=== PATIENT | male | born 1965 | race Caucasian/White ===

== ENCOUNTER → 2016-11-13 | Outpatient (CLI) | payer OTHER ==
[~2016-11-13] MED LIST: AZIT250T PO; BUME2TAB18 PO; BUPR300T59 PO; CALC-5 PO; CHOL200014 PO; DAPA1TAB5 PO; DILT240C50 PO; ENAL20TA PO; ESCI20TA30 PO; FLUT12AE7 ORAL INH; GABA-336 PO; INSU100V20 SQ; INSU300I SQ; LORA-315 PO; METF-206 PO; MONT10TA15 PO; NITR0.4T39 PO; PANT40TA32 PO; PIOG30TA27 PO; POTA10TA16 PO; PRED20TA PO; RIVA20TA PO; SIMV20TA6 PO; SOTA80TA PO
--- NOTE | 2016-11-13 14:05 | DI ---
Indication: ITS.REASON: CHF, AFIB, RT SHOULDER, DM, DIABETIC NEUROPATHY, COPD, DEPRESSION PROCEDURE: SHOULDER RIGHT 2-3 VIEWS: Encounter: Initial Comparison: None Findings: There is no acute fracture, dislocation or malalignment identified. Suture anchor in the glenoid. Glenohumeral joint space is normal. Mild acromioclavicular joint space narrowing with small osteophytes. Impression: No acute osseous abnormality. .
== END ==
LOC: IMA 13:32
PROVIDERS: ATTEND Surgery
DX: M25.511 Pain in right shoulder (principal); E11.40 Type 2 diabetes mellitus with diabetic neuropathy, unspecified; H91.91 Unspecified hearing loss, right ear; I48.91 Unspecified atrial fibrillation; I50.9 Heart failure, unspecified; J44.9 Chronic obstructive pulmonary disease, unspecified

== ENCOUNTER 2017-01-22 01:31 | Observation (INO) ==
--- NOTE | 2017-01-22 02:04 | Emergency Department Report ---
Chest Pain HPI - General Stated Complaint: Chest pain/dizzie Time Seen by Provider: 01/22/17 02:00 - History of Present Illness HPI narrative: 51 yo gentleman with chest pain onset at 1am. He felt sick last night and had diarrhea x 4. He went to bed, but awoke with rapid hr and "an elephant" on his chest. He feels soa and exhausted. Ex smoker. Hx of afib and ablation. Fever on arrival at ED, but did not realize he had one until he got here. Decreased appetite x 2 days. He is diabetic , controlled with Insulin. BG usually runs 140-170. - Related Data Home Medications Medication Instructions Recorded Confirmed Cholecalciferol (Vitamin D3) 2,000 unit PO DAILY #0 12/28/12 01/22/17 (Vitamin D3) Insulin Aspart (Novolog) 10 u SQ WB #0 12/28/12 01/22/17 LORazepam [Lorazepam] 0.5 mg PO PRN #0 12/28/12 01/22/17 Metformin Hcl 1,000 mg PO HS #0 12/28/12 01/22/17 Montelukast Sodium [Singulair] 10 mg PO HS #0 12/28/12 01/22/17 Pantoprazole Sodium 40 mg PO DAILY #0 12/28/12 01/22/17 Calcium Carbonate 1 tab PO DAILY #0 11/23/13 01/22/17 Insulin Aspart (Novolog) 10 u SQ WL #0 11/23/13 01/22/17 Insulin Aspart (Novolog) 15 u SQ WS #0 11/23/13 01/22/17 Rivaroxaban [Xarelto] 20 mg PO HS #0 11/23/13 01/22/17 Sotalol HCl [Sotalol] 80 mg PO ACBID #0 05/08/14 01/22/17 Bumetanide 2 mg PO BID #0 08/18/16 01/22/17 Enalapril Maleate 10 mg PO BID #0 08/18/16 01/22/17 Escitalopram Oxalate 20 mg PO DAILY #0 08/18/16 01/22/17 Insulin Glargine,Hum.rec.anlog 60 unit SQ DAILY #0 08/18/16 01/22/17 [Norma Grimaldo] Nitroglycerin 0.4 mg PO Q5MIN #0 08/18/16 01/22/17 Pioglitazone HCl 30 mg PO DAILY #0 08/18/16 01/22/17 Potassium Chloride ER Tab [K-Dur] 20 meq PO DAILY #0 08/18/16 01/22/17 Simvastatin 20 mg PO QOD #0 08/18/16 01/22/17 buPROPion HCl [Bupropion Xl] 300 mg PO DAILY #0 08/18/16 01/22/17 dilTIAZem HCl [Cartia Xt] 240 mg PO DAILY #0 08/18/16 01/22/17 Gabapentin [Neurontin] 200 mg PO TID 01/22/17 01/22/17 Insulin Glargine,Hum.rec.anlog 60 unit SQ HS 01/22/17 01/22/17 [Toryan Solostar] Allergies Allergy/AdvReac Type Severity Reaction Status Date / Time rosuvastatin [From Crestor] Allergy Severe Shortness Verified 01/22/17 06:46 of Breath (Air) Fihswhb-Boz-Czp Reductase Allergy Severe DYSPNEA Verified 01/22/17 06:46 Inhibitor tetracycline Allergy Intermediate Rash Verified 01/22/17 06:46 zolpidem tartrate Allergy Intermediate HALLUCINATI Uncoded 01/22/17 06:46 ONS Review of Systems All systems: reviewed and negative except as stated PFSH Patient Stated Medical History Angina Yes Cardiac Arrhythmia Yes Congestive Heart Failure Yes Hypertension Yes Other Cardiology Yes: AFIB Asthma Yes Bronchitis Yes Chronic Obstructive Pulmonary Yes Disease (COPD) Diabetes Mellitus Type 1 Yes Gastroesophageal Reflux Yes Disease Other Hematologic Yes: ON XARELTO Other Musculoskeletal Yes: ARTHRITIS AND NEUROPATHY Depression Yes Clinic Medical History (Last Updated 01/23/17 @ 10:12 by Willie Lux MD) Diabetes mellitus type 2, uncontrolled, without complications (Chronic Medical) Hyperlipidemia LDL goal <100 (Chronic Medical) Hypertension (Chronic Medical) intermediate current use of insulin (Chronic Medical) Morbid obesity with BMI of 45.0-49.9, adult (Chronic Medical) Surgical History: ablation Family History: htn - Social History Smoking status: Former smoker Substance use type: does not use Physical Exam - Limitations Limitations: no limitations - General General appearance: alert - Normal Exams: Head:: Normocephalic without trauma Cardiovascular:: Regular rate and rhythm, without murmur or gallop, Pulses 2+ all extremities, capillary refill, <2 seconds all extremities Abdomen:: Bowel sounds positive, soft, non-tender, non-distended, no hepatosplenomegaly, masses or bruits noted Neurological:: Patient is alert, and oriented, cranial nerves, motor/sensory/ cerebellar, exams w/o gross deficits, to observation Psychiatric:: Patient exhibits, appropriate attention, emotion and affect - Respiratory Respiratory exam: Present: wheezes, other (tachypnea) Course Vital Signs Temperature 101.2 F H 01/22/17 01:33 Pulse Rate 97 01/22/17 01:33 Respiratory Rate 15 01/22/17 01:33 Blood Pressure 125/60 01/22/17 01:33 Pulse Oximetry 96 01/22/17 01:33 Temperature 98.0 F 01/23/17 08:01 Pulse Rate 72 01/23/17 08:01 Respiratory Rate 16 01/23/17 08:01 Blood Pressure 127/69 01/23/17 08:01 Pulse Oximetry 96 01/23/17 08:01 Chest Pain - MDM Narrative Medical decision making narrative: Patient febrile, dyspneic and with chest pain. On chest x-ray lower right lobe possible infiltrate identified. White count elevated at 13.9. Patient diagnosed with pneumonia both based on clinical and laboratory data. Blood cultures obtained, Rocephin 1 g IV started. Lactate ordered and hospitalist consulted. Initial workup was for chest pain therefore patient was given 81 mg ASA 4, metoprolol IV. He developed a headache from nitroglycerin, was given morphine 2 mg to help resolve this. He is admitted to hospitalist service. - Lab Data Result diagrams: 01/23/17 04:26 01/23/17 04:26 Lab Results 01/22/17 01/22/17 01/22/17 Range/Units 02:00 02:00 03:06 WBC 13.9 H (4.5-11.0) T/MM3 RBC 5.09 (4.50-5.90) M/MM3 Hgb 14.2 (13.5-17.5) GM/DL Hct 43.7 (41-53) % MCV 85.9 (80-100) UM3 MCH 27.9 (26-34) UUG MCHC 32.5 (31-37) GM/DL RDW Std Deviation 46.7 (36.9-50.2) FL Plt Count 200 (130-400) T/MM3 MPV 11.8 (9.4-12.4) UM3 Immature Gran % (Auto) 0.1 (0.0-0.5) % Neut % (Auto) 72.6 H (33-66) % Lymph % (Auto) 16.4 L (23-45) % Barron % (Auto) 9.4 H (0-9.0) % Eos % (Auto) 1.2 (0-4) % Baso % (Auto) 0.3 (0-2) % Neut # 10.1 H (1.8-7.7) T/MM3 Lymph # 2.3 (1-4.8) T/MM3 Barron # 1.3 H (0-0.8) T/MM3 Eos # 0.2 (0-0.5) T/MM3 Baso # 0.0 (0-0.2) T/MM3 Abs Immat Gran (auto) 0.02 (0.00-0.03) T/MM3 Turbidity < 20 (0-20) Sodium 139 (134-144) MEQ/L Potassium 4.2 (3.6-5) MEQ/L Chloride 101 (98-107) MEQ/L Carbon Dioxide 27 (22-30) MEQ/L Anion Gap 11 (5-15) MEQ/L BUN 14.0 (9-20) MG/DL Creatinine 0.8 (0.8-1.5) MG/DL GFR Calculation 102 BUN/Creatinine Ratio 18 (6-26) RATIO Glucose 87 (75-110) MG/DL Calculated Osmolality 268 (261-280) MOSM/KG Calcium 9.0 (8.4-10.2) MG/DL Icterus Index < 2 (0-7) Troponin I < 0.012 (0-0.12) ng/ml B-Natriuretic Peptide 47.9 (0-175) pg/mL Specimen Hemolysis < 15 (0-25) Ur Collection Type Urine, clean catch Urine Color Yellow (YELLOW) Urine Clarity Clear Urine pH 5.5 (5.0-8.0) Ur Specific [place] 1.020 (1.015-1.025) Urine Protein Trace A (NEGATIVE) Urine Glucose (UA) Negative (NEGATIVE) Urine Ketones Negative (NEGATIVE) Urine Occult Blood Negative (NEGATIVE) Urine Nitrate Negative (NEGATIVE) Urine Bilirubin Negative (NEGATIVE) Urine Urobilinogen 0.2 (NORMAL) EU/DL Ur Leukocyte Esterase Negative (NEGATIVE) Urinalysis Comment Microscopic not ind. 01/22/17 Range/Units 04:34 WBC (4.5-11.0) T/MM3 RBC (4.50-5.90) M/MM3 Hgb (13.5-17.5) GM/DL Hct (41-53) % MCV (80-100) UM3 MCH (26-34) UUG MCHC (31-37) GM/DL RDW Std Deviation (36.9-50.2) FL Plt Count (130-400) T/MM3 MPV (9.4-12.4) UM3 Immature Gran % (Auto) (0.0-0.5) % Neut % (Auto) (33-66) % Lymph % (Auto) (23-45) % Barron % (Auto) (0-9.0) % Eos % (Auto) (0-4) % Baso % (Auto) (0-2) % Neut # (1.8-7.7) T/MM3 Lymph # (1-4.8) T/MM3 Barron # (0-0.8) T/MM3 Eos # (0-0.5) T/MM3 Baso # (0-0.2) T/MM3 Abs Immat Gran (auto) (0.00-0.03) T/MM3 Turbidity (0-20) Sodium (134-144) MEQ/L Potassium (3.6-5) MEQ/L Chloride (98-107) MEQ/L Carbon Dioxide (22-30) MEQ/L Anion Gap (5-15) MEQ/L BUN (9-20) MG/DL Creatinine (0.8-1.5) MG/DL GFR Calculation BUN/Creatinine Ratio (6-26) RATIO Glucose (75-110) MG/DL Calculated Osmolality (261-280) MOSM/KG Calcium (8.4-10.2) MG/DL Icterus Index (0-7) Troponin I < 0.012 (0-0.12) ng/ml B-Natriuretic Peptide (0-175) pg/mL Specimen Hemolysis < 15 (0-25) Ur Collection Type Urine Color (YELLOW) Urine Clarity Urine pH (5.0-8.0) Ur Specific [place] (1.015-1.025) Urine Protein (NEGATIVE) Urine Glucose (UA) (NEGATIVE) Urine Ketones (NEGATIVE) Urine Occult Blood (NEGATIVE) Urine Nitrate (NEGATIVE) Urine Bilirubin (NEGATIVE) Urine Urobilinogen (NORMAL) EU/DL Ur Leukocyte Esterase (NEGATIVE) Urinalysis Comment Disposition Clinical Impression: PNEUMONIA Disposition: [facility] Condition: Improved Time of Disposition: 13:33 - Seen By: physician
[2017-01-22] MEDS ORDERED: METOPROLOL 5mg/5ml INJECTION IVP ONE (02:05)
[2017-01-22] MEDS ORDERED: NS 1,000 ML IV ONE (02:05)
[2017-01-22] MEDS ORDERED: NITROGLYCERIN 0.4 MG SUBLINGUAL TABLET SL PRN ×2 (02:05→06:30)
[2017-01-22] MEDS ORDERED: ASPIRIN 81 MG CHEWABLE TABLET PO ONE (02:05)
[2017-01-22] MEDS ORDERED: MORPHINE SULFATE 2 MG SYRINGE IVP ONE (02:30)
[2017-01-22] MEDS ORDERED: CEFTRIAXONE 1 G in NS 100 ML IV ONE (05:59)
[2017-01-22] MEDS ORDERED: LORazepam 0.5 MG TABLET PO SCH (06:30)
[2017-01-22] MEDS ORDERED: MORPHINE SULFATE 4 MG SYRINGE IVP PRN (06:36)
[2017-01-22] MEDS ORDERED: ACETAMINOPHEN 325 MG TABLET PO PRN (06:36)
[2017-01-22] MEDS ORDERED: ONDANSETRON 4 MG/2 ML INJECTION IVP PRN ×2 (06:36→09:51)
[2017-01-22 06:46] VITALS: BMI 46.1
[2017-01-22] MEDS: SOTALOL 80 MG TABLET PO SCH ×2 (07:32→17:56)
--- NOTE | 2017-01-22 07:58 | XRay Report ---
INDICATION: chest pain PROCEDURE: CHEST 2-VIEWS UPRIGHT (PA & LAT) Encounter: Initial COMPARISON: August 18, 2016 Findings: The lungs are stable in appearance without new focal airspace consolidation. There is no pleural effusion or pneumothorax. The heart size, pulmonary vascularity and mediastinal contours are unchanged. IMPRESSION: Stable appearance of the chest without acute cardiopulmonary disease. .
[2017-01-22] MEDS ORDERED: LORazepam 0.5 MG TABLET PO PRN (08:15)
[2017-01-22] MEDS: INSULIN GLARGINE 100unit/ml INJECTION SQ SCH (09:21)
[2017-01-22] MEDS: INSULIN ASPART 100unit/ml INJECTION SQ SCH (09:22)
[2017-01-22] MEDS: PANTOPRAZOLE 40 MG TABLET PO SCH (09:23)
[2017-01-22] MEDS: ESCITALOPRAM 20 MG TABLET PO SCH (09:23)
[2017-01-22] MEDS: BUMETANIDE 1 MG TABLET PO SCH ×2 (09:23→17:56)
[2017-01-22] MEDS: BuPROPion XL 300mg (24HR) TABLET PO SCH (09:23)
[2017-01-22] MEDS: GABAPENTIN 100 MG CAPSULE PO SCH ×3 (09:23→21:01)
[2017-01-22] MEDS: AZITHROMYCIN 250 MG TABLET PO SCH (09:23)
[2017-01-22] MEDS: CALCIUM CARBONATE 500 MG TABLET PO SCH (09:23)
[2017-01-22] MEDS: PIOGLITAZONE 30 MG TABLET PO SCH (09:24)
--- NOTE | 2017-01-22 09:28 | History & Physical Report ---
<Kalie Joaquin V - Last Filed: 01/22/17 09:37> History of Present Illness Date: 01/22/17 Chief complaint: Chest pressure, chills, diarrhea HPI: Zackary is a pleasant 51-year-old male who presented to the emergency room overnight for acute onset of chest pressure. He reports that he had not been feeling well last evening was having some chills followed by multiple episodes of loose stools. At approximately 1 a.m. he awoke with chest pressure and what she felt a "elephant" sitting on his chest. Is was concerning and he presented to the emergency room for further acute evaluation and treatment. Basic laboratory studies were obtained. He was found to have an elevated white count at 13.9, hemoglobin 14.2, hematocrit 43.7, platelet count 200. Neutrophils 72%. Chemistry panel was unremarkable. Initial troponin was undetectable, 0.012, proBNP 47.9. A urinalysis is obtained showing a trace protein, otherwise unremarkable. Twelve-lead EKG did reveal sinus rhythm with a right bundle branch block. Chest x-ray did not reveal any acute cardiopulmonary findings. Initially on arrival. He did have a fever of 101.2, pulse rate, normal, room air saturations 97%, blood pressure 127/69. He does have significant risk factors, as well as family history coronary artery disease. The hospitalist services were contacted and accepted patient for outpatient admission for further evaluation and treatment. Review of Systems All systems: reviewed and no additional remarkable complaints except as stated - Constitutional Constitutional: Present: chills, fever(s) - Cardiovascular Cardiovascular: Present: chest pain (pressure- now resolved) - Gastrointestinal Gastrointestinal: Present: diarrhea, nausea PFSH Patient Stated Medical History Hearing Loss- right ear deafness Angina A-fib Congestive Heart Failure Hypertension Hyperlipidemia Asthma Bronchitis Chronic Obstructive Pulmonary Disease (COPD) Sleep Apnea Diabetes Mellitus Type 2 GERD Arthritis Depression Morbid obesity Surgical History: Cardiac ablation for atrial fibrillation. Umbilical hernia repair. Cardiac catheter. Tonsillectomy. Mastoidectomy. Right shoulder surgery - Social History Smoking status: Former smoker (quit May 2016) Substance use type: does not use Alcohol intake frequency: does not drink Household members: spouse Current occupational status: disabled Current residence: Apartment/Private Home Social history: PCP-Katie Anderson Endocrinology-Dr. Taylor Cardiology-Dr. Dillard Medications Home Medications Medication Instructions Recorded Confirmed Type Cholecalciferol (Vitamin D3) 2,000 unit PO DAILY #0 12/28/12 01/22/17 History (Vitamin D3) Insulin Aspart (Novolog) 10 u SQ WB #0 12/28/12 01/22/17 History LORazepam [Lorazepam] 0.5 mg PO PRN #0 12/28/12 01/22/17 History Metformin Hcl 1,000 mg PO HS #0 12/28/12 01/22/17 History Montelukast Sodium [Singulair] 10 mg PO HS #0 12/28/12 01/22/17 History Pantoprazole Sodium 40 mg PO DAILY #0 12/28/12 01/22/17 History Calcium Carbonate 1 tab PO DAILY #0 11/23/13 01/22/17 History Insulin Aspart (Novolog) 10 u SQ WL #0 11/23/13 01/22/17 History Insulin Aspart (Novolog) 15 u SQ WS #0 11/23/13 01/22/17 History Rivaroxaban [Xarelto] 20 mg PO HS #0 11/23/13 01/22/17 History Sotalol HCl [Sotalol] 80 mg PO ACBID #0 05/08/14 01/22/17 History Bumetanide 2 mg PO BID #0 08/18/16 01/22/17 History Enalapril Maleate 10 mg PO BID #0 08/18/16 01/22/17 History Escitalopram Oxalate 20 mg PO DAILY #0 08/18/16 01/22/17 History Insulin Glargine,Hum.rec.anlog 60 unit SQ DAILY #0 08/18/16 01/22/17 History [Toujeo Solostar] Nitroglycerin 0.4 mg PO Q5MIN #0 08/18/16 01/22/17 History Pioglitazone HCl 30 mg PO DAILY #0 08/18/16 01/22/17 History Potassium Chloride ER Tab [K-Dur] 20 meq PO DAILY #0 08/18/16 01/22/17 History Simvastatin 20 mg PO QOD #0 08/18/16 01/22/17 History buPROPion HCl [Bupropion Xl] 300 mg PO DAILY #0 08/18/16 01/22/17 History dilTIAZem HCl [Cartia Xt] 240 mg PO DAILY #0 08/18/16 01/22/17 History Gabapentin [Neurontin] 200 mg PO TID 01/22/17 01/22/17 History Insulin Glargine,Hum.rec.anlog 60 unit SQ HS 01/22/17 01/22/17 History [Toryan Grimaldo] Allergies Allergy/AdvReac Type Severity Reaction Status Date / Time rosuvastatin [From Crestor] Allergy Severe Shortness Verified 01/22/17 06:46 of Breath (Air) Xheyfpy-Wnb-Fof Reductase Allergy Severe DYSPNEA Verified 01/22/17 06:46 Inhibitor tetracycline Allergy Intermediate Rash Verified 01/22/17 06:46 zolpidem tartrate Allergy Intermediate HALLUCINATI Uncoded 01/22/17 06:46 ONS Exam Vital Signs: Temperature 97.3 F 01/22/17 07:54 Pulse Rate 80 01/22/17 08:00 Respiratory Rate 18 01/22/17 07:54 Blood Pressure 127/69 01/22/17 07:54 Pulse Oximetry 99 01/22/17 07:54 Oxygen Delivery Method Room Air Telemetry Rhythm: Sinus Rhythm Height: 1.8 m Weight: 150.8 kg Body Mass Index: 46.1 - Constitutional Present: no acute distress - Routine HEENT Exam Head: Present: normocephalic, atraumatic Eye: Present: EOMI, PERRL ENT: Present: mucous membranes moist - Routine Neck Exam Present: supple, full ROM - Routine Respiratory Exam Present: CTA bilaterally - Routine Cardiovascular Exam Present: RRR, S1, S2 - Routine Abdominal Exam Present: soft. Absent: normoactive bowel sounds Comments: hypoactive - Routine Extremities Exam Present: full ROM - Routine Back/Spine/Pelvis Exam Back/Spine: Present: full ROM - Routine Skin Exam Present: intact - Routine Neurological Exam Present: alert, oriented X3, CN II-XII intact - Routine Psychiatric Exam Present: normal affect, normal thought process Results - Labs CBC & Chem 7: 01/22/17 02:00 01/22/17 02:00 Microbiology Results: Microbiology 01/22/17 06:43 Peripheral/Iv Start Blood Culture - Preliminary Culture Initiated - Results Pending 01/22/17 06:49 Peripheral/Iv Start Blood Culture - Preliminary Culture Initiated - Results Pending Assessment and Plan (1) SIRS (systemic inflammatory response syndrome) Current visit: Yes Status: Acute (2) Diarrhea Current visit: Yes Status: Acute (3) Diabetes mellitus type 2, uncontrolled, without complications Current visit: No Status: Chronic (4) Hyperlipidemia LDL goal <100 Current visit: No Status: Chronic (5) Hypertension Current visit: No Status: Chronic (6) detention current use of insulin Current visit: No Status: Chronic (7) Morbid obesity with BMI of 45.0-49.9, adult Current visit: No Status: Chronic (8) Leukocytosis Current visit: Yes Status: Acute DVT Prophylaxis: Xarelto Resuscitation Status: Full Code Assessment and Plan: Admit patient of outpatient observation for Sirs, leukocytosis, fever and diarrhea Carina to monitor on cardiac telemetry and obtain serial troponins 3 to rule out cardiac infarcts. Patient does see Dr. Dillard in the outpatient setting. We will likely need to establish follow-up in the outpatient setting. Clinically patient appears to have an acute infectious process. Given his fever, leukocytosis and chills. Obtain a GI panel to rule out infectious etiology. He was empirically covered with Rocephin and azithromycin overnight. Currently, blood cultures are pending. Monitor Accuchecks and continue with Novolog 10 units with breakfast and lunch and 15 units with super. Lantus 48 units at HS along with with metformin. Zofran as needed for nausea Imodium as needed for loose stools Monitor blood pressure and continue home cardiac medications- Enalapril, Cardizem, Sotolol He is chronically anticoagulated on Xarelto. Protonix daily for GI protection Will discuss further with attending, Dr. Lux Sepsis Assessment - Evaluation Sepsis screening result: No Definite Risk Hospital Course Summary Disclaimer: The visit summary below is not to be considered part of the above Progress Note. Hospital Course: 01/22/17 Admit patient of outpatient observation for Sirs, leukocytosis, fever and diarrhea Carina to monitor on cardiac telemetry and obtain serial troponins 3 to rule out cardiac infarcts. Patient does see Dr. Dillard in the outpatient setting. We will likely need to establish follow-up in the outpatient setting. Clinically patient appears to have an acute infectious process. Given his fever, leukocytosis and chills. Obtain a GI panel to rule out infectious etiology. He was empirically covered with Rocephin and azithromycin overnight. Currently, blood cultures are pending. Monitor Accuchecks and continue with Novolog 10 units with breakfast and lunch and 15 units with super. Lantus 48 units at HS along with with metformin. Zofran as needed for nausea Imodium as needed for loose stools Monitor blood pressure and continue home cardiac medications- Enalapril, Cardizem, Sotolol He is chronically anticoagulated on Xarelto. Protonix daily for GI protection Will discuss further with attending, Dr. Lux <Willie Lux - Last Filed: 01/22/17 19:28> History of Present Illness Date: 01/22/17 [facility] Patient Stated Medical History Hearing Loss Yes: deaf in rt ear Other HEENT Yes: diabetes in eyes Angina Yes Cardiac Arrhythmia Yes Congestive Heart Failure Yes Hypertension Yes Other Cardiology Yes: AFIB Asthma Yes Bronchitis Yes Chronic Obstructive Pulmonary Yes Disease (COPD) Sleep Apnea Yes Diabetes Mellitus Type 2 Yes Gastroesophageal Reflux Yes Disease Other Hematologic Yes: ON XARELTO Other Musculoskeletal Yes: ARTHRITIS AND NEUROPATHY Depression Yes Clinic Medical History (Last Updated 01/22/17 @ 10:09 by Kalie Joaquin APRN) Diabetes mellitus type 2, uncontrolled, without complications (Chronic Medical) Hyperlipidemia LDL goal <100 (Chronic Medical) Hypertension (Chronic Medical) 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) Morbid obesity with BMI of 45.0-49.9, adult (Chronic Medical) Exam Vital Signs: Temperature 100 F 01/22/17 16:01 Pulse Rate 96 01/22/17 17:56 Respiratory Rate 18 01/22/17 16:01 Blood Pressure 128/70 01/22/17 16:01 Pulse Oximetry 95 01/22/17 16:01 Oxygen Delivery Method Room Air Height: 1.8 m Weight: 150.8 kg Results - Labs CBC & Chem 7: 01/22/17 02:00 01/22/17 02:00 Microbiology Results: Microbiology 01/22/17 06:43 Peripheral/Iv Start Blood Culture - Preliminary Culture Initiated - Results Pending 01/22/17 06:49 Peripheral/Iv Start Blood Culture - Preliminary Culture Initiated - Results Pending Assessment and Plan (1) Campylobacter diarrhea Current visit: Yes Status: Acute (2) SIRS (systemic inflammatory response syndrome) Current visit: Yes Status: Acute (3) Leukocytosis Current visit: Yes Status: Acute (4) Diabetes mellitus type 2, uncontrolled, without complications Current visit: No Status: Chronic (5) detention current use of insulin Current visit: No Status: Chronic (6) Hypertension Current visit: No Status: Chronic (7) Hyperlipidemia LDL goal <100 Current visit: No Status: Chronic (8) Morbid obesity with BMI of 45.0-49.9, adult Current visit: No Status: Chronic Assessment and Plan: Have independently interviewed and examined pt. Chart reviewed. Case discussed with my COMMUNITY SUPPORT ASSOCIATE. Care plan developed with my supervision; agree with above. Present to ED with chest pressure. Started feeling very sick at stomach with n/v /d. Symptoms escalated and developed the chest pressure. Not having increased cough or congestion. Did reheat some chicken and worries he picked up a gut bug. Lungs: decreased, no distress CV: regular Ab: soft obese nt/nd. MSE: awake alert appropriate Plan: OBS. Tele. Serial enzymes. Rocephin/azithromycin started due to leukocytosis. GI panel obtained showing Campylobacter in stool - likely etiology of his SIRS. This evening, pt feeling much better. Stools slowing down ; still loose, but not as urgent. Eating well. No nausea. Breathing stable. Enzymes negative. Will continue with IVF treatment. Recheck lab tomorrow. Hope for discharge tomorrow if doing well. Hospital Course Summary Disclaimer: The visit summary below is not to be considered part of the above Progress Note.
[2017-01-22] MEDS ORDERED: LOPERAMIDE 2 MG CAPSULE PO PRN (09:52)
[2017-01-22] MEDS ORDERED: INSULIN ASPART 100unit/ml INJECTION SQ SCH ×2 (12:00→17:30)
[2017-01-22] MEDS: NS 1,000 ML IV SCH (13:46)
[2017-01-22] MEDS ORDERED: SIMVASTATIN 20 MG TABLET PO SCH (21:00)
[2017-01-22] MEDS ORDERED: METFORMIN 1,000 MG TABLET PO SCH (22:00)
[2017-01-22] MEDS ORDERED: RIVAROXABAN 20 MG TABLET PO SCH (22:00)
[2017-01-22] MEDS ORDERED: INSULIN GLARGINE 100unit/ml INJECTION SQ SCH (22:00)
[2017-01-22] MEDS ORDERED: MONTELUKAST 10 MG TABLET PO SCH (22:00)
[2017-01-22 23:57] VITALS: RESP 16
[2017-01-23] MEDS: NS 1,000 ML IV SCH ×2 (00:06→10:44)
[2017-01-23] MEDS: SOTALOL 80 MG TABLET PO SCH (06:14)
[2017-01-23 08:03] VITALS: BP 127/69; PULSE 72; TEMP 98; O2SAT 96
[2017-01-23] MEDS: INSULIN ASPART 100unit/ml INJECTION SQ SCH (08:35)
[2017-01-23] MEDS: INSULIN GLARGINE 100unit/ml INJECTION SQ SCH (08:35)
[2017-01-23] MEDS: GABAPENTIN 100 MG CAPSULE PO SCH (08:35)
[2017-01-23] MEDS: BUMETANIDE 1 MG TABLET PO SCH (08:36)
[2017-01-23] MEDS: ESCITALOPRAM 20 MG TABLET PO SCH (08:36)
[2017-01-23] MEDS: PIOGLITAZONE 30 MG TABLET PO SCH (08:37)
[2017-01-23] MEDS: CALCIUM CARBONATE 500 MG TABLET PO SCH (08:37)
[2017-01-23] MEDS: PANTOPRAZOLE 40 MG TABLET PO SCH (08:37)
[2017-01-23] MEDS: BuPROPion XL 300mg (24HR) TABLET PO SCH (08:37)
[2017-01-23] MEDS: AZITHROMYCIN 250 MG TABLET PO SCH (08:45)
[2017-01-23] MEDS ORDERED: CEFTRIAXONE 1,000 MG in D5W 25 ML IV SCH (09:00)
[2017-01-23] MEDS ORDERED: CEFTRIAXONE 1 G in NS 100 ML IV SCH (09:00)
--- NOTE | 2017-01-23 09:56 | Discharge Summary ---
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 He reports that he had not been feeling well last evening was having some chills followed by multiple episodes of loose stools. At approximately 1 a.m. he awoke with chest pressure and what she felt a "elephant" sitting on his chest. Is was concerning and he presented to the emergency room for further acute evaluation and treatment. Basic laboratory studies were obtained. He was found to have an elevated white count at 13.9, hemoglobin 14.2, hematocrit 43.7, platelet count 200. Neutrophils 72%. Chemistry panel was unremarkable. Initial troponin was undetectable, 0.012, proBNP 47.9. A urinalysis is obtained showing a trace protein, otherwise unremarkable. Twelve-lead EKG did reveal sinus rhythm with a right bundle branch block. Chest x-ray did not reveal any acute cardiopulmonary findings. Initially on arrival. He did have a fever of 101.2, pulse rate, normal, room air saturations 97%, blood pressure 127/69. He does have significant risk factors, as well as family history coronary artery disease. The hospitalist services were contacted and accepted patient for outpatient admission for further evaluation and treatment. For complete details of the H&P, refer to that document. Objective Vital signs: Temperature 98.0 F 01/23/17 08:01 Pulse Rate 72 01/23/17 08:01 Respiratory Rate 16 01/23/17 08:01 Blood Pressure 127/69 01/23/17 08:01 Pulse Oximetry 96 01/23/17 08:01 Oxygen Delivery Method Room Air Weight: 147.6 kg - Constitutional Present: no acute distress, well nourished, well developed, obese, cooperative - Routine HEENT Exam Head: Present: normocephalic, atraumatic Eye: Present: EOMI, PERRL. Absent: conjunctival icterus ENT: Present: mucous membranes moist - Routine Respiratory Exam Present: decreased breath sounds, distant breath sounds. Absent: accessory muscle use, dyspnea, respiratory distress, rhonchi, wheezes, crackles - Routine Cardiovascular Exam Present: RRR. Absent: murmur - Routine Abdominal Exam Present: soft, non distended, non tender - Routine Extremities Exam Present: no edema, pulses intact. Absent: cyanosis, clubbing - Routine Musculoskeletal Exam Musculoskeletal: Present: no clubbing or cyanosis, normal strength, no joint swelling - Routine Skin Exam Present: intact, warm, normal turgor. Absent: pallor, mottling - Routine Neurological Exam Present: alert, oriented X3, CN II-XII intact, vision grossly intact, hearing grossly intact. Absent: motor deficit - Routine Psychiatric Exam Present: normal affect, normal thought process, cooperative, good insight, good judgment Hospital Course This is a general summary of the patient's hospital course. For more details refer to the complete medical record. Hospital course: 01/22/17 Admit patient of outpatient observation for Sirs, leukocytosis, fever and diarrhea Carina to monitor on cardiac telemetry and obtain serial troponins 3 to rule out cardiac infarcts. Patient does see Dr. Dillard in the outpatient setting. We will likely need to establish follow-up in the outpatient setting. Clinically patient appears to have an acute infectious process. Given his fever, leukocytosis and chills. Obtain a GI panel to rule out infectious etiology. He was empirically covered with Rocephin and azithromycin overnight. Currently, blood cultures are pending. Monitor Accuchecks and continue with Novolog 10 units with breakfast and lunch and 15 units with super. Lantus 48 units at HS along with with metformin. Zofran as needed for nausea Imodium as needed for loose stools Monitor blood pressure and continue home cardiac medications- Enalapril, Cardizem, Sotolol He is chronically anticoagulated on Xarelto. Protonix daily for GI protection GI panel with campylobacter - etiology of diarrhea and SIRS. 01/23/17 Doing very well today. No f/c. Diarrhea resolved-not having ab pain or bloating. Eating well. Breathing well. No further episodes of chest pain. Ambulating without problems. Temp normal. BP and HR normal. WBC still with elevation, but otherwise SIRS criteria resolved. Will d/c to home. Continue chronic home medications. No treatment needed for GI pathogen. [facility]. See orders for details. Time spent with patient: discharge greater than 30 minutes DVT Prophylaxis: SCD's, Xarelto GI Prophylaxis: Protonix Discharge Plan - Med Rec/Dispo Referrals[facility]Follow Up: [facility] [Non-Staff[facility] - Alex Instructions: Chest Pain (GEN) Prescriptions: Continue Cholecalciferol (Vitamin D3) (Vitamin D3) 2,000 unit PO DAILY #0 Insulin Aspart (Novolog) 10 u SQ WB #0 LORazepam [Lorazepam] 0.5 mg PO PRN #0 Montelukast Sodium [Singulair] 10 mg PO HS #0 Insulin Aspart (Novolog) 15 u SQ WS #0 Calcium Carbonate 1 tab PO DAILY #0 Sotalol HCl [Sotalol] 80 mg PO ACBID #0 dilTIAZem HCl [Cartia Xt] 240 mg PO DAILY #0 Enalapril Maleate 10 mg PO BID #0 Escitalopram Oxalate 20 mg PO DAILY #0 Pioglitazone HCl 30 mg PO DAILY #0 Insulin Glargine,Hum.rec.anlog [Toujeo Solostar] 60 unit SQ DAILY #0 Nitroglycerin 0.4 mg PO Q5MIN #0 Metformin Hcl 1,000 mg PO HS #0 Pantoprazole Sodium 40 mg PO DAILY #0 Rivaroxaban [Xarelto] 20 mg PO HS #0 Insulin Aspart (Novolog) 10 u SQ WL #0 Simvastatin 20 mg PO QOD #0 Bumetanide 2 mg PO BID #0 Potassium Chloride ER Tab [K-Dur] 20 meq PO DAILY #0 buPROPion HCl [Bupropion Xl] 300 mg PO DAILY #0 Gabapentin [Neurontin] 200 mg PO TID No Action Insulin Glargine,Hum.rec.anlog [Toujeo Solostar] 60 unit SQ HS Discharge Instructions/Outpatient Orders: Final Provider Discharge Instructions Location: Determined By Patient - Disposition 01 Discharged Home, Self-Care - Attestation Attestation Narrative: 01/23/17 10:06 I have interviewed and examined pt prior to discharge. Medically stable for discharge to home in good condition.
[2017-01-23] MEDS ORDERED: RIVAROXABAN 20 MG TABLET PO SCH (17:30)
== END 2017-01-23 10:55 | disposition home or self-care (01) ==
LOC: MED 01:31 → ED 01:31 → MED 06:30
PROVIDERS: ADMIT Internal Medicine; ATTEND Internal Medicine